=== PATIENT | female | born 1985 | race Caucasian/White ===

== ENCOUNTER 2021-07-17 08:13 | Emergency (ER) | payer OTHER, SELFPAY ==
[2021-07-17 08:22] VITALS: BP 124/68; PULSE 60; RESP 24; TEMP 36.6; O2SAT 98
--- NOTE | 2021-07-17 08:24 | ED.GENADULT ---
HPI - General Adult General Chief complaint: Shortness of Breath/Dyspnea Stated complaint: Shortness of breath, pain when taking deep breath Time Seen by Provider: 07/17/21 08:24 Source: patient History of Present Illness HPI narrative: Patient presents with an asthma exacerbation. Patient states she has been using her inhaler at home but is not working. Patient feels shortness of breath but denies any chest pain no fever. Related Data Home Medications Medication Instructions Recorded Confirmed albuterol sulfate 90 mcg INHALATION Q4-6H PRN 07/17/21 07/17/21 Allergies Allergy/AdvReac Type Severity Reaction Status Date / Time Penicillins Allergy Intermediate Hives / Verified 05/28/19 11:53 Red Face Review of Systems Review of Systems: CONSTITUTIONAL: Denies fever, chills, or sweats. EYES: Denies visual changes, redness, or discharge. ENT: Denies rhinorrhea, congestion, sore throat, or otalgia. CARDIOVASCULAR: Denies chest pain, palpitations, or edema. RESPIRATORY: Denies cough or dyspnea. GASTROINTESTINAL: Denies abdominal pain, nausea, vomiting, or diarrhea. GENITOURINARY: Denies dysuria or hematuria. SKIN: Denies rash or itching. MUSCULOSKELETAL: Denies back pain, joint pain, or myalgia. NEUROLOGIC: Denies headache, numbness, or weakness. PSYCHIATRIC: Denies anxiety or depression. PMFSH Social History Social History Gender identity (if verbalized by the patient): Female Comments At time of signature, agree with nursing past medical, surgical, social and family history. There is no relevant family history pertinent to the presenting complaint Exam Narrative: GENERAL: Well-appearing, well-nourished, and in no acute distress. HEAD: Normocephalic, atraumatic. EYES: PERRLA and EOMI. ENT: Nares clear, no rhinorrhea or epistaxis. Mucous membranes moist. NECK: Supple. CHEST: Clear to auscultation. No respiratory distress. HEART: Regular rate and rhythm. No murmur heard. Normal peripheral pulses. ABDOMEN: Soft, nontender, nondistended, normal active bowel sounds. EXTREMITIES: Normal range of motion. No edema. SKIN: Warm, dry, no rash. NEURO: No focal deficits. Alert and oriented x3. [place] Coma Scale Eye Opening: Spontaneous 4 [place] Coma Scale Motor: Obeys Commands 6 Theresa Coma Scale Verbal: Oriented 5 [place] Coma Scale Total 15 Course Vital Signs Vital signs: Vital Signs Temperature 36.6 C 07/17/21 08:22 Pulse Rate 60 07/17/21 08:22 Respiratory Rate 24 H 07/17/21 08:22 Blood Pressure 124/68 07/17/21 08:22 Pulse Oximetry 98 07/17/21 08:22 Temperature 36.6 C 07/17/21 08:32 Pulse Rate 60 07/17/21 08:50 Respiratory Rate 24 H 07/17/21 08:50 Blood Pressure 124/68 07/17/21 08:32 Pulse Oximetry 98 07/17/21 08:50 patient states feels much better after neb treatment and is ready to go home. Critical dx considered and discussed with pt. Educated patient on red flag s/s and to go to ED if s/s occur. Discussed with pt when to return to [facility] or primary care provider. Pt gave verbal understanding, all questions were answered, and pt was agreeable to plan Regarding diagnosis, Regarding diagnostic results, Regarding treatment plan, Regarding prescription, Patient indicated understanding of instructions. Critical dx considered and discussed with pt. Educated patient on red flag s/s and to go to ED if s/s occur. Discussed with pt when to return to [facility] or primary care provider. Pt gave verbal understanding, all questions were answered, and pt was agreeable to plan.. Medical Decision Making Differential Diagnosis Differential Diagnosis: Asthma flare, COPD, bronchitis Medical Records Medical records reviewed: Yes I reviewed the external patient's medical records. Vital Signs Vital Signs: Vital Signs Temperature 36.6 C 07/17/21 08:22 Pulse Rate 60 07/17/21 08:22 Respiratory Rate 24 H 07/17/21 08:22 Blood Pressure 124/68 07/17/21 08:22 Pulse
[2021-07-17 08:32] VITALS: BP 124/68; PULSE 60; RESP 24; TEMP 36.6; O2SAT 98
[2021-07-17] MEDS: methylPREDNISolone SOD SUCC 125 MG VIAL IM (08:43)
[2021-07-17] MEDS: ALBUTEROL SULFATE NEB 2.5 MG/3 ML INH INHALATION (08:46)
[2021-07-17] MEDS: IPRATROPIUM BR 0.02% INH SOLN 0.5 MG/2.5 ML VIAL INHALATION (08:46)
[2021-07-17 08:50] VITALS: PULSE 60; RESP 24; O2SAT 98
[2021-07-17 09:25] VITALS: PULSE 84; RESP 20
== END 2021-07-17 09:26 | disposition home or self-care (01) ==
PROVIDERS: Emergency Provider Nurse Practitioner Family
DX: J45.901 Unspecified asthma with (acute) exacerbation (principal)
CPT/HCPCS: 94640; 96372; 99213; G0463; J2930

== ENCOUNTER 2021-11-14 17:12 | Emergency (ER) | payer OTHER, SELFPAY ==
[2021-11-14 17:33] VITALS: BP 133/72; PULSE 81; RESP 18; TEMP 37.2; O2SAT 98
--- NOTE | 2021-11-14 18:03 | ED.EAR ---
HPI - Ear Problem General Chief complaint: Ear Stated complaint: Ear pain Time Seen by Provider: 11/14/21 18:03 Source: patient and RN notes reviewed Mode of arrival: ambulatory Limitations: no limitations History of Present Illness HPI Narrative: 36-year-old female presents concern for ear pain, worse on the left for several days. She reports sinus congestion, pressure, drainage for 1 month for which she has been taking several [id number] medications such as Sudafed without relief. She denies fever, bodies, chills, sweats, cough, shortness of breath. MD Complaint: ear pain Related Data Home Medications Medication Instructions Recorded Confirmed albuterol sulfate 90 mcg INHALATION Q4-6H PRN 07/17/21 11/14/21 Allergies Allergy/AdvReac Type Severity Reaction Status Date / Time Penicillins Allergy Intermediate Hives / Verified 11/14/21 17:36 Red Face Review of Systems Review of Systems: CONSTITUTIONAL: Denies malaise, chills, sweats, or fever. EYES: Denies visual changes, redness, or discharge. ENT: Reports rhinorrhea, congestion, sinus pain, otalgia. Denies sore throat. CARDIOVASCULAR: Denies chest pain, palpitations, or edema. RESPIRATORY: Denies cough. Denies dyspnea. GASTROINTESTINAL: Denies abdominal pain, nausea, vomiting, diarrhea SKIN: Denies rash or itching. MUSCULOSKELETAL: Denies myalgia. NEUROLOGIC: Denies headache. All systems reviewed & are unremarkable except as noted in HPI and below PMFSH Social History Social History Gender identity (if verbalized by the patient): Female Comments At time of signature, agree with nursing past medical, surgical, social and family history. There is no relevant family history pertinent to the presenting complaint Exam Narrative: GENERAL: Well-appearing, well-nourished, and in no acute distress. HEAD: Normocephalic EYES: PERRLA, conjunctivae clear ENT: Nares clear, turbinates erythematous, sinus tenderness. Mucous membranes moist. Right TM pearly singh with dull light reflex, left TM erythematous and bulging; no tragal tenderness. Oropharynx not erythematous without lesions. Tonsils not enlarged and without exudate, no drooling, no hoarseness, no trismus, uvula midline. NECK: Supple. No lymphadenopathy CHEST: Clear to auscultation, breath sounds equal. No wheezing, rhonchi, rales, or stridor. No respiratory distress, speaks in full sentences. HEART: Regular rate and rhythm. No murmur heard. SKIN: Warm, dry, no rash. NEURO: Alert and oriented x3. PSYCH: Normal mood and affect Course Course Emergency Course: Patient is aware of diagnosis, understands and agrees to treatment plan. Anticipatory guidance given. Patient agrees to follow-up as directed and is aware of reasons to seek care at the emergency department. Portions of this record may have been created with voice recognition software Vital Signs Vital signs: Vital Signs Temperature 99 F 11/14/21 17:33 Pulse Rate 81 11/14/21 17:33 Respiratory Rate 18 11/14/21 17:33 Blood Pressure 133/72 11/14/21 17:33 Pulse Oximetry 98 11/14/21 17:33 Temperature 99 F 11/14/21 17:33 Pulse Rate 81 11/14/21 17:33 Respiratory Rate 18 11/14/21 17:33 Blood Pressure 133/72 11/14/21 17:33 Pulse Oximetry 98 11/14/21 17:33 Reviewed. Medical Decision Making MDM Narrative Medical decision making narrative: Differential diagnosis considered: Tao virus, strep pharyngitis, allergic rhinitis, upper respiratory tract infection, sinusitis, rhinosinusitis, nasopharyngitis. viral pharyngitis, otitis media, otitis externa, pneumonia, bronchitis, viral cough syndrome, viral syndrome, and influenza. Exam findings show no acute concerns or changes; patient is non-toxic appearing and is in no distress. Patient is appropriate for outpatient treatment and follow-up. Vital Signs Vital Signs: Vital Signs Temperature 99 F 11/14/21 17:33 Pulse Rate 81 11/14/21 17:33 Respiratory Rate 18
== END 2021-11-14 18:19 | disposition home or self-care (01) ==
PROVIDERS: Emergency Provider Nurse Practitioner; PCP Family Medicine
DX: J01.90 Acute sinusitis, unspecified (principal); B96.89 Other specified bacterial agents as the cause of diseases classified elsewhere; H66.002 Acute suppurative otitis media without spontaneous rupture of ear drum, left ear
CPT/HCPCS: 99213; G0463

== ENCOUNTER 2022-04-03 16:43 | Emergency (ER) | payer OTHER, SELFPAY ==
[2022-04-03 16:55] VITALS: BP 113/52; PULSE 72; RESP 20; TEMP 37.3; O2SAT 98
--- NOTE | 2022-04-03 17:15 | ED.URI ---
HPI - URI/Sore Throat General Chief Complaint: Upper Respiratory Infection Stated Complaint: Sore Throat/Body Ache Time Seen by Provider: 04/03/22 17:05 Source: patient, RN notes reviewed and old records reviewed Mode of arrival: ambulatory Limitations: no limitations History of Present Illness HPI Narrative: 36-year-old female who complain of headache, sore throat, body aches yesterday about 3 PM. Patient states she has been taking Zyrtec and also has been taking [place] cold and flu [id number]. Patient reports that she has been vaccinated for COVID and also has had COVID in the past . Patient denies any acute cough or congestion, denies any wheezing or any tachypnea or accessory muscle use. Patient does have a history of asthma MD elicited complaint: sore throat and other (Headache, body aches) Pertinent past history: tympanostony tubes Onset (ago): day(s) (1) Consistency: progressively worsening Related Data Home Medications Medication Instructions Recorded Confirmed albuterol sulfate 90 mcg INHALATION Q4-6H PRN 07/17/21 04/03/22 escitalopram oxalate 10 mg PO DAILY 04/03/22 04/03/22 Allergies Allergy/AdvReac Type Severity Reaction Status Date / Time Penicillins Allergy Intermediate Hives / Verified 11/14/21 17:36 Red Face Review of Systems Review of Systems: CONSTITUTIONAL: Denies known fever, chills, or sweats. EYES: Denies visual changes, redness, or discharge. ENT: Positive for rhinorrhea, congestion, sore throat, or otalgia. CARDIOVASCULAR: Denies chest pain, palpitations, or edema. RESPIRATORY: Denies acute cough or dyspnea. GASTROINTESTINAL: Denies abdominal pain, nausea, vomiting, or diarrhea. GENITOURINARY: Denies dysuria or hematuria. SKIN: Denies rash or itching. MUSCULOSKELETAL: Denies back pain, joint pain, positive body aches NEUROLOGIC: Positive headache, no numbness, or weakness. PSYCHIATRIC: positive for anxiety or depression. All systems reviewed & are unremarkable except as noted in HPI and below PMFSH Past Medical History Medical History (Updated 04/04/22 @ 20:19 by Marce Cummings NP) Anxiety Asthma Bronchitis GERD (gastroesophageal reflux disease) History of sinus problem Surgical History Surgical History (Updated 04/04/22 @ 20:17 by Marce Cummings NP) History of appendectomy History of cholecystectomy History of placement of ear tubes History of tonsillectomy History of tympanoplasty of left ear Social History Social History (Updated 04/04/22 @ 20:14 by Marce Cummings NP) Smoking packs per day: 0.5 Smoking cigarettes per day: 10.0 Smoking status: Current every day smoker Tobacco type: cigarettes Gender identity (if verbalized by the patient): Female Comments At time of signature, agree with nursing past medical, surgical, social and family history. There is no relevant family history pertinent to the presenting complaint Exam Narrative: GENERAL: Well-appearing, well-nourished, and in no acute distress. HEAD: Normocephalic, atraumatic. EYES: PERRLA and EOMI. ENT: Nares membranes red clear rhinorrhea no epistaxis. Mucous membranes moist. TMs normal with good light reflex throat red with no exudate or lesions no tonsils present NECK: Supple. No lymphadenopathy CHEST: Clear to auscultation. No respiratory distress. SaO2 98% on room air dry cough no tachypnea HEART: Regular rate and rhythm. No murmur heard. Normal peripheral pulses. ABDOMEN: Soft, nontender, nondistended, normal active bowel sounds. EXTREMITIES: Normal range of motion. No edema. SKIN: Warm, dry, no rash. NEURO: No focal deficits. Alert and oriented x3. Course Course Level of Care: Express Care Visit Vital Signs Vital signs: Vital Signs Temperature 37.3 C 04/03/22 16:55 Pulse Rate 72 04/03/22 16:55 Respiratory Rate 20 04/03/22 16:55 Blood Pressure 113/52 L 04/03/22 16:55 Pulse Oximetry 98 04/03/22 16:55 Temperature 37.3 C 04/03/22 16:55 Pul
== END 2022-04-03 17:53 | disposition home or self-care (01) ==
PROVIDERS: Emergency Provider Registered Nurse; PCP Nurse Practitioner Family
DX: J06.9 Acute upper respiratory infection, unspecified (principal); J45.909 Unspecified asthma, uncomplicated
CPT/HCPCS: 87081; 87804; 87880; 99213; G0463

== ENCOUNTER 2022-10-23 16:30 | Emergency (ER) | payer OTHER, SELFPAY ==
[2022-10-23 17:42] VITALS: BP 134/65; PULSE 95; RESP 20; TEMP 36.8; O2SAT 98
--- NOTE | 2022-10-23 19:25 | ED.URI ---
HPI - URI/Sore Throat General Chief Complaint: Upper Respiratory Infection Stated Complaint: Chest Congestion/Shortness of Breath Time Seen by Provider: 10/23/22 19:25 Source: patient, RN notes reviewed and old records reviewed Mode of arrival: ambulatory Limitations: no limitations History of Present Illness HPI Narrative: 37 year old female who present to express care with complaints of cough, some shortness of breath, with chest tightness and it hurting to take a deep breath since this morning. Patient reports that she has had cough and has felt some dizziness for the past week.Patient reports that she has been using her inhalers and she has taken some Tylenol cold and flu. Patient has not had COVID vaccinations or influenza shot. Patient reports that her ears hurt and she also has some scratchy throat, MD elicited complaint: cough and other (some shortness of breath) Pertinent past history: asthma and other (tobacco abuse) Treatments prior to arrival: aspirin, cold medicine and other (inhalers Albuterol and Flovent) Related Data Home Medications Medication Instructions Recorded Confirmed albuterol sulfate 90 mcg/actuation 90 mcg inhalation Q4-6H PRN 07/17/21 10/23/22 aerosol inhaler Shortness Of Breath Or Wheezing famotidine 20 mg tablet 20 mg PO BID 10/23/22 10/23/22 Allergies Allergy/AdvReac Type Severity Reaction Status Date / Time Penicillins Allergy Intermediate Hives / Verified 10/23/22 18:06 Red Face Review of Systems Review of Systems: CONSTITUTIONAL: Denies malaise, chills, sweats, or fever. EYES: Denies visual changes, redness, or discharge. ENT: Reports rhinorrhea, congestion, no sinus pain, positive for otalgia and sore throat. CARDIOVASCULAR: Denies chest pain, palpitations, or edema. RESPIRATORY: Reports cough.?Reports some dyspnea with cough and tightness to chest GASTROINTESTINAL: Denies abdominal pain, nausea, vomiting, diarrhea SKIN: Denies rash or itching. MUSCULOSKELETAL: Denies myalgia. NEUROLOGIC: Denies headache, reports some dizziness All systems reviewed & are unremarkable except as noted in HPI and below PMFSH Past Medical History Medical History Anxiety Asthma Bronchitis GERD (gastroesophageal reflux disease) History of sinus problem Surgical History Surgical History History of appendectomy History of cholecystectomy History of placement of ear tubes History of tonsillectomy History of tympanoplasty of left ear Social History Social History Smoking packs per day: 0.5 Smoking cigarettes per day: 10.0 Smoking status: Current every day smoker Tobacco type: cigarettes Gender identity (if verbalized by the patient): Female Comments At time of signature, agree with nursing past medical, surgical, social and family history. There is no relevant family history pertinent to the presenting complaint Exam Narrative: GENERAL: Well-appearing, well-nourished, and in no acute distress. HEAD: Normocephalic EYES: PERRLA, conjunctivae clear ENT: Nares clear, turbinates edematous and erythematous, clear discharge. Mucous membranes moist. TM pearly singh with dull light reflex bilaterally; no tragal tenderness. Oropharynx erythematous without lesions. Tonsils not present and without throat exudate, no drooling, no hoarseness, no trismus, uvula midline.post nasal drainage noted NECK: Supple. No lymphadenopathy CHEST: Scattered wheezing on auscultation, breath sounds equal. No wheezing, rhonchi, rales, or stridor. No respiratory distress, speaks in full sentences.cough, SAO2 98% on room air HEART: Regular rate and rhythm. No murmur heard. SKIN: Warm, dry, no rash. NEURO: Alert and oriented x3. PSYCH: Normal mood and affect Course Course Emergency Course: Patient is aware of diagnos
== END 2022-10-23 19:49 | disposition home or self-care (01) ==
PROVIDERS: Emergency Provider Registered Nurse; PCP Nurse Practitioner Family
DX: J45.901 Unspecified asthma with (acute) exacerbation (principal); J06.9 Acute upper respiratory infection, unspecified; F17.210 Nicotine dependence, cigarettes, uncomplicated; K21.9 Gastro-esophageal reflux disease without esophagitis
CPT/HCPCS: 87081; 87880; 99213; G0463

== ENCOUNTER 2023-06-17 18:53 | Emergency (ER) | payer OTHER, SELFPAY ==
--- NOTE | ~2023-06-17 | XR_ITS ---
EXAM: XR wrist LT min 3V DATE: 06/17/2023 19:14 HISTORY: PAIN LEFT WRIST, FELL 3 DAYS AGO. . COMPARISON: None available. FINDINGS: Normal mineralization. No acute fracture or dislocation. No lytic or blastic lesion. Small loose bodies/fractured osteophytes at the medial and lateral aspects of the distal radius. Ulnar neg ative variance. Degenerative change at the radiocarpal joint. No erosion or periosteal change. Soft t issues within normal limits. IMPRESSION: No acute osseous finding in the left wrist. Reviewed, dictated and finalized at location K.
[2023-06-17 19:00] VITALS: BP 137/67; PULSE 72; RESP 16; TEMP 36.8; O2SAT 100
--- NOTE | 2023-06-17 19:01 | ED.UPPEXIN ---
HPI - Extremity Injury (Upper) General Chief Complaint: Extremity Injury, Upper Stated Complaint: Fall Injury Left Wrist Time Seen by Provider: 06/17/23 19:10 Source: patient and RN notes reviewed Mode of arrival: ambulatory Limitations: no limitations History of Present Illness HPI narrative: 38-year-old female presents with concern for left wrist pain. Reports on Friday she slipped and caught herself with her left wrist. Reports symptoms worsen today, she feels numbness in her fingers. She reports wrist pain with flexion of the digits. Reports she has been alternate Tylenol and ibuprofen MD complaint: injury to: left and wrist Related Data Home Medications Medication Instructions Recorded Confirmed albuterol sulfate 90 mcg/actuation 90 mcg inhalation Q4-6H PRN 07/17/21 06/17/23 aerosol inhaler Shortness Of Breath Or Wheezing famotidine 20 mg tablet 20 mg PO BID 10/23/22 06/17/23 ergocalciferol (vitamin D2) 1,250 1,250 mcg PO WEEKLY 06/17/23 06/17/23 mcg (50,000 unit) capsule Allergies Allergy/AdvReac Type Severity Reaction Status Date / Time Penicillins Allergy Intermediate Hives / Verified 10/23/22 18:06 Red Face Review of Systems Review of Systems: CONSTITUTIONAL: Denies malaise, chills, sweats, or fever. SKIN: Denies rash or itching, open skin, laceration, abrasion, redness, warmth MUSCULOSKELETAL: Reports left wrist pain and swelling NEUROLOGIC: Denies numbness, weakness All systems reviewed & are unremarkable except as noted in HPI and below PMFSH Past Medical History Medical History Anxiety Asthma Bronchitis GERD (gastroesophageal reflux disease) History of sinus problem Surgical History Surgical History History of appendectomy History of cholecystectomy History of placement of ear tubes History of tonsillectomy History of tympanoplasty of left ear Social History Social History Smoking packs per day: 0.5 Smoking cigarettes per day: 10.0 Smoking status: Current every day smoker Tobacco type: cigarettes Gender identity (if verbalized by the patient): Female Comments At time of signature, agree with nursing past medical, surgical, social and family history. There is no relevant family history pertinent to the presenting complaint Exam Narrative: GENERAL: Well-appearing, well-nourished, and in no acute distress. HEAD: Normocephalic, atraumatic. EYES: PERRLA, conjunctivae clear NECK: Supple. CHEST: Speaks in full sentences. No respiratory distress. HEART: Regular rate and rhythm. Normal and equal peripheral pulses. EXTREMITIES: Left wrist has normal strength and sensation, normal range of motion. Mild wrist edema, no ecchymosis. 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 Normal sensation with sensitivity to light touch and pain. No point tenderness. No open wounds, no skin tenting, no devitalized tissue or atrophy, no trophic changes, no obvious deformity, alignment normal, nearby joints and structures intact. Distal pulses palpable and equal bilaterally, skin warm, dry, pink. Capillary refill less than 3 seconds. SKIN: Warm, dry, no rash. NEURO: Alert and oriented x3. PSYCH: Normal mood and affect Course Course Emergency Course: Patient is aware of diagnosis, understands and agrees to treatment plan. Anticipatory guidance given. Patient agrees to follow-up as directed and is aware of reasons to seek care at the emergency department. Portions of this record may have been created with voice recognition software Level of Care: Express Care Visit Vital Signs Vital signs: Reviewed. MDM - Extremity Injury (Upper) MDM Narrative Medical decision making narrative: Patients injury and pain is consistent with musculoskeletal etiology. No signs of neurological or vascular compromise on exam. Compartments and
[2023-06-17 19:06] VITALS: BP 137/67; PULSE 72; RESP 16; TEMP 36.8; O2SAT 100
== END 2023-06-17 19:28 | disposition home or self-care (01) ==
PROVIDERS: Emergency Provider Nurse Practitioner
DX: S63.502A Unspecified sprain of left wrist, initial encounter (principal); S66.912A Strain of unspecified muscle, fascia and tendon at wrist and hand level, left hand, initial encounter; W01.0XXA Fall on same level from slipping, tripping and stumbling without subsequent striking against object, initial encounter; J45.909 Unspecified asthma, uncomplicated; K21.9 Gastro-esophageal reflux disease without esophagitis
CPT/HCPCS: 73110; 99213; G0463

== ENCOUNTER 2023-12-07 15:16 | Emergency (ER) | payer OTHER, SELFPAY ==
--- NOTE | ~2023-12-07 | XR_ITS ---
EXAMINATION: XR knee LT min 4V DATE: 12/07/2023 16:16 INDICATION: Left knee pain TECHNIQUE: Four views of the left knee were obtained. COMPARISON: 03/28/2017 FINDINGS: Alignment is normal. No acute fracture or osteochondral lesion. And old healed fracture of the proximal fibula is noted. There is mild tricompartmental osteoarthritis characterized by tiny mar ginal osteophytes. There is a small joint effusion. Soft tissues are unremarkable. IMPRESSION: 1. Osteoarthritis without acute osseous abnormality. Reviewed, dictated and finalized at location F. [facility]
[2023-12-07 15:21] VITALS: BP 143/69; PULSE 82; RESP 20; TEMP 36.4; O2SAT 100
--- NOTE | 2023-12-07 16:24 | ED.EXTPRO ---
HPI - Extremity Problem General Chief complaint: Extremity Problem,Nontraumatic Stated complaint: Left Leg/Knee Pain,Swelling/Tingling History of Present Illness HPI Narrative: Patient presents with left knee pain. Patient states she recently went on a long distant travel out of state and when she went to get up had pain to the lateral side of her left knee. No calf pain slight swelling to area no injury no bruising no open areas noted. Related Data Home Medications Medication Instructions Recorded Confirmed albuterol sulfate 90 mcg/actuation 2 puff inhalation Q4-6H PRN 07/17/21 12/07/23 aerosol inhaler Shortness Of Breath Or Wheezing fluticasone propionate 250 2 inh inhalation BID 12/07/23 12/07/23 mcg/actuation blister powder for inhalation levonorgestrel 21 mcg/24 hours (8 1 device intrauterine ONCE 12/07/23 12/07/23 yrs) 52 mg intrauterine device (Mirena) levothyroxine 50 mcg tablet 50 mcg PO DAILY 12/07/23 12/07/23 montelukast 10 mg tablet 10 mg PO DAILY 12/07/23 12/07/23 Allergies Allergy/AdvReac Type Severity Reaction Status Date / Time Penicillins Allergy Intermediate Hives / Verified 12/07/23 15:32 Red Face Review of Systems Review of Systems: CONSTITUTIONAL: Denies fever, chills, or sweats. EYES: Denies visual changes, redness, or discharge. ENT: Denies rhinorrhea, congestion, sore throat, or otalgia. CARDIOVASCULAR: Denies chest pain, palpitations, or edema. RESPIRATORY: Denies cough or dyspnea. GASTROINTESTINAL: Denies abdominal pain, nausea, vomiting, or diarrhea. GENITOURINARY: Denies dysuria or hematuria. SKIN: Denies rash or itching. MUSCULOSKELETAL: Denies back pain, joint pain, or myalgia. NEUROLOGIC: Denies headache, numbness, or weakness. PSYCHIATRIC: Denies anxiety or depression. [facility] Past Medical History Medical History Anxiety Asthma Bronchitis GERD (gastroesophageal reflux disease) History of sinus problem Surgical History Surgical History History of appendectomy History of cholecystectomy History of placement of ear tubes History of tonsillectomy History of tympanoplasty of left ear Social History Social History Smoking packs per day: 0.5 Smoking cigarettes per day: 10.0 Smoking status: Current every day smoker Tobacco type: cigarettes Gender identity (if verbalized by the patient): Female Comments At time of signature, agree with nursing past medical, surgical, social and family history. There is no relevant family history pertinent to the presenting complaint Exam Narrative: GENERAL: Well-appearing, well-nourished, and in no acute distress. HEAD: Normocephalic, atraumatic. EYES: PERRLA and EOMI. ENT: Nares clear, no rhinorrhea or epistaxis. Mucous membranes moist. NECK: Supple. CHEST: Clear to auscultation. No respiratory distress. HEART: Regular rate and rhythm. No murmur heard. Normal peripheral pulses. ABDOMEN: Soft, nontender, nondistended, normal active bowel sounds. EXTREMITIES: Normal range of motion. No edema. KNEE EXAM - SKIN INTACT. NO DEFORMITY. NO SIGNIFICANT SWELLING. NORMAL ROM, HAS FULL EXTENSION AND FLEXION. COMPARTMENTS SOFT. NO CALF TENDERNESS. NEGATIVE ANTERIOR, POSTERIOR DRAWER SIGNS ON TEST. NO CREPITUS. DP PULSE, NORMAL CAPILLARY REFILL. NEGATIVE DAYTON'S. NEGATIVE PALMER'S SKIN: Warm, dry, no rash. NEURO: No focal deficits. Alert and oriented x3. Theresa Coma Scale Eye Opening: Spontaneous 4 Theresa Coma Scale Motor: Obeys Commands 6 Theresa Coma Scale Verbal: Oriented 5 Theresa Coma Scale Total 15 Course Course Level of Care: Express Care Visit Vital Signs Vital signs: Vital Signs Temperature 36.4 C L 12/07/23 15:21 Pulse Rate 82 12/07/23 15:21 Respiratory Rate 20 12/07/23 15:21 Blood Pressure 143/69 H 12/07/23 15:2
== END 2023-12-07 16:30 | disposition home or self-care (01) ==
PROVIDERS: Emergency Provider Nurse Practitioner Family; PCP Family Medicine
DX: M17.12 Unilateral primary osteoarthritis, left knee (principal); F17.210 Nicotine dependence, cigarettes, uncomplicated; Z79.899 Other long term (current) drug therapy
CPT/HCPCS: 73564; 99213; G0463

== ENCOUNTER 2024-03-29 08:42 | Emergency (ER) | payer SELFPAY ==
[2024-03-29 08:46] VITALS: BP 116/79; PULSE 62; RESP 20; TEMP 36.6; O2SAT 98
--- NOTE | 2024-03-29 09:02 | ED.FEMALEGU ---
HPI - Female Genitourinary General Chief complaint: Urogenital-Female Stated complaint: Urinary Problem Time Seen by Provider: 03/29/24 09:00 Source: patient, RN notes reviewed and old records reviewed Mode of arrival: ambulatory Limitations: no limitations History of Present Illness HPI Narrative: 38 year old female old female with complaints of 1 week duration of urinary pressure feels like she can not empty her bladder fully and does have some CVA tenderness bilateral. Patient reports she has not fevers but she has had some chills. Patient has taken azo for her symptoms with last dose on Friday. Patient reports that she has burning with urination and pressure at the urethra with pain 6-7 with voiding.Patient denies any concern for STD's. MD elicited complaint: UTI Pertinent past history: IUD and other (past UTI's) Onset (ago): week(s) (1) Location of symptoms: urethra and flank Severity scale (1-10): 6 Quality of pain: burning Vaginal discharge: none Vaginal bleeding: none Related Data Home Medications Medication Instructions Recorded Confirmed albuterol sulfate 90 mcg/actuation 2 puff inhalation Q4-6H PRN 07/17/21 12/07/23 aerosol inhaler Shortness Of Breath Or Wheezing fluticasone propionate 250 2 inh inhalation BID 12/07/23 12/07/23 mcg/actuation blister powder for inhalation levonorgestrel 21 mcg/24 hours (8 1 device intrauterine ONCE 12/07/23 12/07/23 yrs) 52 mg intrauterine device (Mirena) Allergies Allergy/AdvReac Type Severity Reaction Status Date / Time Penicillins Allergy Intermediate Hives / Verified 12/07/23 15:32 Red Face Review of Systems Review of Systems: CONSTITUTIONAL: Denies fever,positive for chills, or sweats. CARDIOVASCULAR: Denies chest pain, palpitations, or edema. RESPIRATORY: Denies cough or dyspnea. GASTROINTESTINAL: Denies abdominal pain, nausea, vomiting, or diarrhea. GENITOURINARY: Reports dysuria, frequency, urgency. Positive for flank pain no visible hematuria. SKIN: Denies rash or itching. MUSCULOSKELETAL: Denies back pain or myalgia. Reports CVA tenderness NEUROLOGIC: Denies headache All systems reviewed & are unremarkable except as noted in HPI and below PMFSH Past Medical History Medical History Anxiety Asthma Bronchitis GERD (gastroesophageal reflux disease) History of sinus problem Surgical History Surgical History History of appendectomy History of cholecystectomy History of placement of ear tubes History of tonsillectomy History of tympanoplasty of left ear Social History Social History Smoking status: Current every day smoker Tobacco type: e-cigarettes/vaping Alcohol intake: current Alcohol use details: social Substance use type: does not use Gender identity (if verbalized by the patient): Female Comments At time of signature, agree with nursing past medical, surgical, social and family history. There is no relevant family history pertinent to the presenting complaint Exam Narrative: GENERAL: Well-appearing, well-nourished, and in no acute distress. HEAD: Normocephalic, atraumatic. NECK: Supple. CHEST: Clear to auscultation. No respiratory distress.SAO2 98% on room air HEART: Regular rate and rhythm. No murmur heard. Normal peripheral pulses. ABDOMEN: Soft, nontender, nondistended, normal active bowel sounds. CVA tenderness, burning pain with urination and frequency EXTREMITIES: Normal range of motion. No edema. SKIN: Warm, dry, no rash. NEURO: No focal deficits. Alert and oriented x3. Course Course Emergency Course: Patient is aware of diagnosis, understands and agrees to treatment plan.? Anticipatory guidance given.? Patient agrees to follow-up as directed and is aware of reasons to seek care at the emergency department. Portions of this re
== END 2024-03-29 09:23 | disposition home or self-care (01) ==
PROVIDERS: Emergency Provider Registered Nurse; PCP Family Medicine
DX: N39.0 Urinary tract infection, site not specified (principal); B96.20 Unspecified Escherichia coli [E. coli] as the cause of diseases classified elsewhere; F17.290 Nicotine dependence, other tobacco product, uncomplicated; J45.909 Unspecified asthma, uncomplicated; K21.9 Gastro-esophageal reflux disease without esophagitis
CPT/HCPCS: 81003; 87077; 87086; 87088; 87186; 99213; G0463

== ENCOUNTER 2024-06-16 17:51 | Emergency (ER) | payer OTHER, SELFPAY ==
[2024-06-16 18:07] VITALS: BP 137/83; PULSE 78; RESP 18; TEMP 36.2; O2SAT 100
--- NOTE | 2024-06-16 18:31 | ED.SKABFB ---
HPI - Skin/Abscess/Foreign Bdy General Chief complaint: Skin/Abscess/Foreign Body Stated complaint: poss skin infection Time Seen by Provider: 06/16/24 18:27 Source: patient and RN notes reviewed Mode of arrival: ambulatory Limitations: no limitations History of Present Illness HPI narrative: Patient presents today complaining of multiple scabbed wounds to her bilateral legs and right arm. States she was bit on the dorsum of the right hand last week and started scratching. 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 and a, ?staph carrier and once she starts scratching the bug bite other areas popped up that itched. She has been using some Mupirocin without relief. Related Data Home Medications Medication Instructions Recorded Confirmed albuterol sulfate 90 mcg/actuation 2 puff inhalation Q4-6H PRN 07/17/21 12/07/23 aerosol inhaler Shortness Of Breath Or Wheezing levonorgestrel 21 mcg/24 hr (up to 1 device intrauterine ONCE 12/07/23 12/07/23 8 years) 52 mg intrauterine device (Mirena) budesonide-formoterol HFA 160 inhalation 06/16/24 mcg-4.5 mcg/actuation aerosol inhaler (Symbicort) ergocalciferol (vitamin D2) 1,250 06/16/24 mcg (50,000 unit) capsule famotidine 20 mg tablet mg 06/16/24 levothyroxine 50 mcg tablet mcg 06/16/24 Allergies Allergy/AdvReac Type Severity Reaction Status Date / Time Penicillins Allergy Intermediate Hives / Verified 12/07/23 15:32 Red Face Review of Systems Review of Systems: CONSTITUTIONAL: Denies body aches, fever, chills, or sweats. EYES: Denies visual changes, redness, or discharge. ENT: Denies rhinorrhea, congestion, sore throat, or otalgia. CARDIOVASCULAR: Denies chest pain, palpitations, or edema. RESPIRATORY: Denies cough or dyspnea. GASTROINTESTINAL: Denies abdominal pain, nausea, vomiting, or diarrhea. GENITOURINARY: Denies dysuria or hematuria. SKIN: +scabbed wounds MUSCULOSKELETAL: Denies back pain, joint pain, or myalgia. NEUROLOGIC: Denies headache, numbness, tingling, or weakness. PSYCH: Denies depression or anxiety. [facility] Past Medical History Medical History Anxiety Asthma Bronchitis GERD (gastroesophageal reflux disease) History of sinus problem Surgical History Surgical History History of appendectomy History of cholecystectomy History of placement of ear tubes History of tonsillectomy History of tympanoplasty of left ear Social History Social History Smoking status: Current every day smoker Tobacco type: e-cigarettes/vaping Alcohol intake: current Alcohol use details: social Substance use type: does not use Gender identity (if verbalized by the patient): Female Comments At time of signature, I have reviewed and agree with nursing past medical, surgical, social and family history unless otherwise noted. Please see nursing chart for further information. There is no relevant family history pertinent to the presenting complaint Exam Narrative: GENERAL: Well-appearing, well-nourished, and in no acute distress. HEAD: Normocephalic, atraumatic. EYES: EOMI. No redness or drainage. Conjunctivae normal. ENT: Mucous membranes pink and moist. NECK: Normal AROM. CHEST: No respiratory distress. EXTREMITIES: Normal range of motion. No edema. SKIN: Warm, dry, no rash. Capillary refill normal. Normal skin turgor. Multiple scabbed lesions to the right hand, bilateral legs, and right arm. The right antecubital fossa is erythematous with some hyper pigmentation. Right hand has some erythema and edema surrounding a scabbed lesion. No active drainage. NEURO: No focal deficits. Alert and oriented x3. Gait steady. PSYCH: Normal affect. No signs of depression or anxiety. Course Course Level of Care: Express Care Visit Vital Signs Vital signs: Vi
== END 2024-06-16 18:41 | disposition home or self-care (01) ==
PROVIDERS: Emergency Provider Nurse Practitioner; PCP Family Medicine
DX: L98.9 Disorder of the skin and subcutaneous tissue, unspecified (principal); L03.113 Cellulitis of right upper limb; F17.290 Nicotine dependence, other tobacco product, uncomplicated; J45.909 Unspecified asthma, uncomplicated; K21.9 Gastro-esophageal reflux disease without esophagitis
CPT/HCPCS: 99213; G0463

== ENCOUNTER 2024-06-28 08:39 | Emergency (ER) | payer OTHER, SELFPAY ==
[2024-06-28 08:48] VITALS: BP 126/54; PULSE 64; RESP 16; TEMP 36.4; O2SAT 97
--- NOTE | 2024-06-28 08:48 | ED.GENADULT ---
HPI - General Adult General Chief complaint: Skin/Abscess/Foreign Body Stated complaint: Skin Problem/Itching Time Seen by Provider: 06/28/24 08:57 Source: patient, RN notes reviewed and old records reviewed Mode of arrival: ambulatory Limitations: no limitations History of Present Illness HPI narrative: 39-year-old female to Express Care for complaint generalized itching to abdomen, bilateral lower back, bilateral feet for 1 day. Patient states she has been attempting to treat at home with Benadryl with some relief. Patient states that she was seen here approximately 2 weeks ago and treated with Bactrim for cellulitis. Patient reports that symptoms from that visit have significantly improved and/or resolved. Patient denies utilizing any new products on her body or around her home, denies environmental allergies, denies liver history, shortness of breath, cough, sore throat, insect bites/stings. Patient appears anxious in exam room and is consistently scratching her abdomen, lower back and bilateral feet. Patient endorses history of anxiety; states she does not currently take any medications to treat it. Patient states that she called her PCP this morning and that they were not able to get her in until Friday. Patient states that she did go ahead and schedule that appointment. Respirations even and nonlabored. Patient able speak in complete sentences without difficulty. Patient able to tolerate fluids by mouth. Patient in no acute distress. Related Data Home Medications Medication Instructions Recorded Confirmed albuterol sulfate 90 mcg/actuation 2 puff inhalation Q4-6H PRN 07/17/21 12/07/23 aerosol inhaler Shortness Of Breath Or Wheezing levonorgestrel 21 mcg/24 hr (up to 1 device intrauterine ONCE 12/07/23 12/07/23 8 years) 52 mg intrauterine device (Mirena) budesonide-formoterol HFA 160 inhalation 06/16/24 mcg-4.5 mcg/actuation aerosol inhaler (Symbicort) ergocalciferol (vitamin D2) 1,250 06/16/24 mcg (50,000 unit) capsule famotidine 20 mg tablet mg 06/16/24 levothyroxine 50 mcg tablet mcg 06/16/24 Allergies Allergy/AdvReac Type Severity Reaction Status Date / Time Penicillins Allergy Intermediate Hives / Verified 12/07/23 15:32 Red Face Review of Systems Review of Systems: All systems reviewed & are unremarkable except as noted in HPI and below Constitutional: Constitutional: Reports no additional constitutional complaints Eyes: Eyes: Reports no additional eye complaints ENT: Reports system reviewed and no additional complaints, except as documented Cardiovascular: Cardiovascular: Reports no additional cardiovascular complaints, Denies chest pain and Denies dyspnea Respiratory: Respiratory: Reports no additional respiratory complaints, Denies cough and Denies dyspnea Musculoskeletal: Musculoskeletal: Reports no additional musculoskeletal complaints Neurologic: Reports system reviewed and no additional complaints, except as documented Psychiatric: Psychiatric: Reports no additional psychiatric complaints [facility] Past Medical History Medical History Anxiety Asthma Bronchitis GERD (gastroesophageal reflux disease) History of sinus problem Surgical History Surgical History History of appendectomy History of cholecystectomy History of placement of ear tubes History of tonsillectomy History of tympanoplasty of left ear Social History Social History Smoking status: Current every day smoker Tobacco type: e-cigarettes/vaping Alcohol intake: current Alcohol use details: social Substance use type: does not use Gender identity (if verbalized by the patient): Female Comments At the time of my signature, I reviewed and agree with the nursing past medical, surgical, social, and family hi
== END 2024-06-28 09:33 | disposition home or self-care (01) ==
PROVIDERS: Emergency Provider Nurse Practitioner Family; PCP Family Medicine
DX: L50.9 Urticaria, unspecified (principal); H60.92 Unspecified otitis externa, left ear; J45.909 Unspecified asthma, uncomplicated; K21.9 Gastro-esophageal reflux disease without esophagitis; F17.290 Nicotine dependence, other tobacco product, uncomplicated
CPT/HCPCS: 99213; G0463

== ENCOUNTER 2025-07-21 09:20 | Emergency (ER) | payer OTHER, SELFPAY ==
[2025-07-21 09:29] VITALS: BP 107/69; PULSE 67; RESP 16; TEMP 36.4; O2SAT 97
--- NOTE | 2025-07-21 09:42 | ED.SKABFB ---
HPI - Skin/Abscess/Foreign Bdy General Chief complaint: Skin/Abscess/Foreign Body Stated complaint: Skin Sore, Left Leg Time Seen by Provider: 07/21/25 09:42 Source: patient Mode of arrival: ambulatory Limitations: no limitations History of Present Illness HPI narrative: [age] year female presents with complaint of insect bite for 4 days. Patient states she was not having any issues with insect bite until yesterday, began to feel pain to left thigh. Today pain is worse with worsening of redness and swelling. Afebrile. Has not treated symptoms with any [id number] medications. All systems reviewed and negative except as noted above. Related Data Home Medications ?Medication ?Instructions ?Recorded ?Confirmed ?Last Taken ?Type albuterol sulfate 90 mcg/actuation 2 puff inhalation Q4-6H PRN 07/17/21 12/07/23 Unknown History aerosol inhaler Shortness Of Breath Or Wheezing levonorgestrel (Mirena) 1 device intrauterine ONCE 12/07/23 12/07/23 Unknown History budesonide-formoterol HFA 160 inhalation 06/16/24 Unknown History mcg-4.5 mcg/actuation aerosol inhaler (Symbicort) famotidine 20 mg tablet mg 06/16/24 Unknown History levothyroxine 50 mcg tablet mcg 06/16/24 Unknown History fluticasone 100 mcg-salmeterol 50 inhalation 07/21/25 Unknown History mcg/dose blistr powdr for inhalation Allergies Allergy/AdvReac Type Severity Reaction Status Date / Time Penicillins Allergy Intermediate Hives / Verified 07/21/25 09:44 Red Face PMFSH Past Medical History Medical History Anxiety Asthma Bronchitis GERD (gastroesophageal reflux disease) History of sinus problem Surgical History Surgical History History of appendectomy History of cholecystectomy History of placement of ear tubes History of tonsillectomy History of tympanoplasty of left ear Social History Social History Smoking status: Current every day smoker Tobacco type: e-cigarettes/vaping Alcohol intake: current Alcohol use details: social Substance use type: does not use Gender identity (if verbalized by the patient): Female Comments At time of signature, agree with nursing past medical, surgical, social and family history. There is no relevant family history pertinent to the presenting complaint. Exam Narrative: GENERAL: This is a well-nourished, well-developed patient, in no apparent distress. HEAD: normocephalic, atraumatic. EYES: PERRL. Sclera clear/white. Vision is grossly intact. EARS: External ears normal NOSE: External nose normal NECK: Neck supple, non-tender without lymphadenopathy, masses or thyromegaly. CARDIOVASCULAR: Regular rate and rhythm without murmurs, gallops, or rubs. RESPIRATORY: Clear to auscultation. Breath sounds equal bilaterally. No wheezes, rales, or rhonchi. SKIN: warm, Dry, intact with no suspicious lesions or rash, good texture and turgor. Erythema to anterior aspect left medial thigh approximately 11 x 7 cm. To center of erythema there is a area of swelling and induration 4 x 2 cm. No fluctuance. No drainage. Mild warmth on palpation. NEURO: awake, alert, and oriented to person, place and time. There were no obvious focal neurologic abnormalities. EXTREMITIES: No joint tenderness, effusion, or edema noted. Course Course Level of Care: Express Care Visit Vital Signs Vital signs: Vital Signs Temperature 36.4 C L 07/21/25 09:29 Pulse Rate 67 07/21/25 09:29 Respiratory Rate 16 07/21/25 09:29 Blood Pressure 107/69 07/21/25 09:29 Pulse Oximetry 97 07/21/25 09:29 Oxygen Delivery Room Air 07/21/25 09:29 Temperature 36.4 C L 07/21/25 09:29 Pulse Rate 67 07/21/25 09:29 Respiratory Rate 16 07/21/25 09:29 Blood Pressure 107/69 07/21/25 09:29 Pulse Oximetry 97 07/21/25 09:29 Oxygen Delivery Room Air 07/21/25 09:29 Reviewed MDM - Skin/Abscess/Foreign Bdy MDM Narrative Medical decision making narrative: will treat infected insect bite with doxycycline. Patient is well-appearing, nontoxic. Agrees with plan of care. Differential Diagnosis Differential diagnosis: Likely abscess of skin or subcutaneous tissue, insect bites and contact dermatitis Discharge Plan Discharge Clinical Impression: Infected insect bite of left thigh Qualifiers: Encounter type: initial encounter Qualified Code(s): S70.362A - Insect bite (nonvenomous), left thigh, initial encounter Patient Disposition: Home Condition: Stable Instructions: Antibiotic Form, Insect Bite or Sting (ED) Additional Instructions: take antibiotic as prescribed until gone. Apply triamcinolone cream to affected area 2 to 3 times a day. Take ibuprofen or Tylenol every 6-8 hours as needed for pain. See your doctor if not improving. Patient Language: Chinese Prescriptions: New doxycycline hyclate 100 mg capsule 100 mg PO BID 7 Days Qty: 14 0RF triamcinolone acetonide 0.1 % cream 1 applic topical BID PRN (Reason: insect bite) Qty: 30 0RF No Action albuterol sulfate 90 mcg/actuation HFA aerosol inhaler 2 puff INHALATION Q4-6H PRN (Reason: Shortness Of Breath Or Wheezing) fluticasone propion-salmeterol 100-50 mcg/dose blister with device INHALATION Mirena 21 mcg/24 hours (8 yrs) 52 mg Intrauterine Device 1 device INTRAUTERINE ONCE Rx Instructions: as a single dose famotidine 20 mg tablet levothyroxine 50 mcg tablet budesonide-formoterol [Symbicort] 160-4.5 mcg/actuation HFA aerosol inhaler INHALATION Follow-up/Referrals: Tong,Tanvi Osborn MD [Primary Care Provider, [facility]] Time of Disposition: 09:50
--- OUTSIDE RECORDS SUMMARY | 2025-07-21 09:45 | XMS_ITS | Clinical Summary ---
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 8 Active albuterol 108 (90 Base) MCG/ACT Aerosol Solution 7 Active furosemide (LASIX) 40 MG Tablet Take by mouth. 8 Active Potassium Chloride ER (KLORCON) 20 MEQ Tablet Controlled Release Take by mouth. 8 Active hydrOXYzine (ATARAX) 25 MG Tablet Take 25 mg by mouth every 6 hours as needed. Active levonorgestrel (MIRENA, 52 MG,) 20 MCG/24HR IUD by Intrauterine route. 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 Temperature 36.6 C (97.8 F) 12/04/2021 10:54 AM 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 Respiratory Rate 18 12/04/2021 10:54 AM 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 Oxygen Saturation 98% 12/04/2021 10:54 AM 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 Inhaled Oxygen Concentration - - Weight 113.4 kg (250 lb) 12/04/2021 10:54 AM 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 Height - - Body Mass Index - - Plan of Treatment Health Maintenance Due Date Last Done Comments Hepatitis C Virus (HCV) Screening 1984 TdaP Immunization 1984 Hepatitis B Immunization (1 of 3 - 19+ 3-dose series) 2003 Pap Smear 2005 Human Papillomavirus (HPV) Immunization (1 - 3-dose SCDM series) 2011 Cervical Cancer Screening (CCS) 2014 HPV/Cotest 2014 SARS-COV-2 Immunization ( season) 2024 Influenza Immunization (#1) 2025 Respiratory Syncytial Virus (RSV) Immunization (Adult) (1 - 1-dose 75+ series) 2059 Meningococcal Immunization (ACWY) Aged Out No longer eligible based on patient's age to complete this topic Pneumococcal Immunization Combined Aged Out No longer eligible based on patient's age to complete this topic Rotavirus Immunization Aged Out No lo nger eligible based on patient's age to complete this topic Insurance MEDICAID [employer] Care Teams Asbestos Siding Mechanic Relationship Specialty Start Date End Date Hsiang Murcia Hina, Rukhsana, MD [facility] [address] [place] [address] PCP - General Family Medicine 01/22/18
--- OUTSIDE RECORDS SUMMARY | 2025-07-21 09:45 | XMS_ITS | Clinical Summary ---
Author Organization [facility] Address [address] [place] [address] Care Team Providers Care Research Environmental Engineer Name Role Phone Tanvi Moya MD Primary Care Provider [phone] Allergies Active Allergy Reactions Criticality Noted Date Comments Penicillins Hives Medium Reaction: Hives, , Medications VENTOLIN HFA 90 mcg/actuation inhaler 08/22/20 17 Active albuterol HFA (PROVENTIL HFA,VENTOLIN HFA,PROAIR HFA) 90 mcg/actuation inhaler Inhale 2 puffs every 4 (four) hours as needed for wheezing 1 Inhaler 03/16/20 19 Active Flovent HFA 110 mcg/actuation inhaler INHALE 1 PUFF BY MOUTH EVERY 12 HOURS 09/22/20 22 Active albuterol HFA (PROVENTIL HFA,VENTOLIN HFA,PROAIR HFA) 90 mcg/actuation inhaler Inhale 03/16/20 19 Active cetirizine (ZyrTEC) 10 mg tablet Take 1 tablet (10 mg total) by mouth daily Active ergocalciferol (VITAMIN D) 50,000 unit capsule Take 1 capsule (50,000 Units total) by mouth Active levothyroxine (SYNTHROID) 50 mcg tablet Take 1 tablet (50 mcg total) by mouth daily 30 tablet 4 11/14/20 23 Active methylPREDNISo lone (Medrol, Tremaine,) 4 mg DosepackIndica tions:Laryngit is follow package directions 1 packet 11/19/20 23 Active budesonide-for moteroL (SYMBICORT) 80-4.5 mcg/actuation inhaler Inhale 2 puffs 2 (two) times a day Rinse mouth with water after use. Do not swallow. Active famotidine (PEPCID) 20 mg tablet Take 2 tablets (40 mg total) by mouth nightly 60 tablet 06/30/[address] (PROTONIX) 40 mg EC tablet Take 1 tablet (40 mg total) by mouth daily 30 tablet 06/30/20 24 Active hydrOXYzine (ATARAX) 25 mg tablet Take 1 tablet (25 mg total) by mouth every 6 (six) hours. 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 . Will probably start levothyroxine to normalize TSH Will recheck TFTs again in 2 to 3 months Body mass index (BMI) 40.0-44.9, adult 3 Family history of cardiovascular disease 023 Indigestion 09/27/2022 Mild persistent asthma 03/24/2022 Mixed anxiety and depressive disorder 03/24/2022 Cough 09/15/2019 Asthma 05/04/2019 Abnormal electrocardiogram 05/04/2019 Edema 05/04/2019 Streptococcal sore throat 10/11/2018 Leg swelling 01/29/2018 Mediastinal lymphadenopathy 01/29/2018 Pulmonary hypertension 01/29/2018 Anasarca 01/26/2018 Chest pain 01/25/2018 Hilar lymphadenopathy 01/25/2018 Dyspnea 01/25/2018 Acute viral syndrome 12/18/2017 Abscess of axilla 01/02/2016 Overview (03/07/2017): Abscess of axilla Postoperative state 12/24/2012 Overview (03/07/2017): Status post laparoscopic cholecystectomy Acute deep vein thrombosis ( DVT) of distal vein of right lower extremity Surgical History Surgery Date Site/Laterality Comments APPENDECTOMY Appendectomy CHOLECYSTECTOMY 12/01/2012 - 11/30/2013 Cholecystectomy OTHER SURGICAL HISTORY multiple ear surgeries EAR SURGERY UPPER GASTROINTESTINAL ENDOSCOPY 06/30/2024 Medical History Medical History Date Comments Hx Other Medical ear surgeries Depression Migraines Asthma Family History Medical History Relation Name Comments Diabetes Other Diabetes mellit us; Mental illness Neg Hx Relation Name Status Comments Other Social History Tobacco Use Types Packs/Day Years Used Date Smoking Tobacco: Former Cigarettes Q uit: 11/23/2022 Smokeless Tobacco: Never Comments:Smoking History Pac ks/day: 0.5 Packs Alcohol Use Standard Drinks/Week Comments No 0 (1 standard drink = 0.6 oz pur e alcohol) AUDIT-C Answer Date Recorded Q1: How often do you have a drink containing alcohol? Never 06/29/2024 Q2: How many drinks containi ng alcohol do you have on a typical day when you are drinking? Patient does not drink Q3: How often do you have si x or more drinks on one occasion? Never 06/29/2024 Personal Safety Answer Date Recorded Have you ever been in or are you currently in a harmful physical or emotional relationship or is someone making you feel afraid or unsafe? Denies 06/30/2024 Comments No Sex and Gender Information Value Date Recorded Sex Assigned at Not on file Legal Sex Female 4:11 PM [employer] Gender Identity Not on file Sexual Orientation Not on file Obstetrics History Last Filed Vital Signs Vital Sign Reading Time Taken Comments Blood Pressure 122/71 06/30/2024 11:00 AM CDT Pulse 58 06/30/2024 11:00 AM CDT Temperature 36.9 C (98.5 F) 06/30/2024 11:00 AM CDT Respiratory Rate 18 06/30/2024 11:00 AM CDT Oxygen Saturation 98% 06/30/2024 11:00 AM CDT Inhaled Oxygen Concentration - - Weight 116.6 kg (257 lb) 06/30/2024 8:09 AM CDT Height 162.6 cm (5' 4) 06/30/2024 8:09 AM CDT Body Mass Index 44.11 06/30/2024 8:09 AM CDT Plan of Treatment Health Maintenance Due Date Last Done Comments Breast Cancer Screening-Mammogram 1984 Cervical Cancer Screening 1984 Depression Screening 1984 Hepatitis C Screening 1984 DTaP/Tdap/Td Vaccine (1 - Tdap) 1995 Varicella Vaccines (1 of 2 - 13+ 2-dose series) 1996 Hepatitis B Screening 2002 Regular Well Visit/Exam 18-64 2002 Pneumococcal vaccine <65 (1 of 2 - PCV) 2003 HPV Vaccines (1 - 3-dose SCDM series) 2011 Influenza Vaccine (#1) 2025 Insurance Advance Directives For more information, please contact: [phone] * Full Code (Latest Code Status on File) Date Activated Date Inactivated Comments 06/30/2024 8:04 AM 06/30/2024 3:17 PM * Full Code Date Activated Date Inactivated Comments 06/30/2024 8:04 AM 06/30/2024 8:04 AM * Full Code Date Activated Date Inactivated Comments 01/16/2018 10:42 PM 01/19/2018 2:12 PM Care Teams Research Environmental Engineer Relationship Specialty Start Date End Date Tanvi Moya MD [address] [place] [phone] PCP - General Obstetrics and Gynecology 06/17/23
== END 2025-07-21 09:50 | disposition home or self-care (01) ==
PROVIDERS: Emergency Provider Nurse Practitioner Family; PCP Family Medicine
DX: S70.362A Insect bite (nonvenomous), left thigh, initial encounter (principal); L08.9 Local infection of the skin and subcutaneous tissue, unspecified; W57.XXXA Bitten or stung by nonvenomous insect and other nonvenomous arthropods, initial encounter; F17.290 Nicotine dependence, other tobacco product, uncomplicated; K21.9 Gastro-esophageal reflux disease without esophagitis; J45.909 Unspecified asthma, uncomplicated
CPT/HCPCS: 99213; G0463